=== PATIENT | male | born 1990 | race Caucasian/White ===

== ENCOUNTER 2019-11-01 02:11 | Emergency (ER) | payer BC ==
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
[2019-11-01] MEDS ORDERED: traMADol 50 MG Tab PO ONE (03:09)
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
== END 2019-11-01 03:22 | disposition home or self-care (01) ==
LOC: MW.ED 02:11
DX: S62.336A Displaced fracture of neck of fifth metacarpal bone, right hand, initial encounter for closed fracture (principal); F17.210 Nicotine dependence, cigarettes, uncomplicated; W22.8XXA Striking against or struck by other objects, initial encounter
CPT/HCPCS: 29125; 73130; 99283; A9270; 99282

== ENCOUNTER 2019-11-05 08:02 | Day surgery (SDC) | payer BC ==
[~2019-11-05 08:02] MED LIST: Lactated Ringers 1,000 ML IV SCH; Midazolam 1 MG/ML 2 ML SDV ONE; ceFAZolin 2 GM in Premix Bag 1 BAG IV SCH; fentaNYL 100 MCG/2 ML SDV ONE
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
[2019-11-05] MEDS ORDERED: Propofol 200 MG/20 ML SDV ONE (09:10)
[2019-11-05] MEDS ORDERED: Midazolam 1 MG/ML 2 ML SDV ONE (09:11)
[2019-11-05] MEDS ORDERED: fentaNYL 100 MCG/2 ML SDV ONE (09:11)
[2019-11-05] MEDS ORDERED: ceFAZolin/Dextrose,Iso-Osmotic 2 GM/50 ML Duplex Bag IV ONE (09:31)
[2019-11-05] MEDS ORDERED: 50% Dextrose in Water 50 ML Syringe IVPUSH PRN (10:25)
[2019-11-05] MEDS ORDERED: Naloxone 0.4 MG/ML Syringe IVPUSH PRN (10:25)
[2019-11-05] MEDS ORDERED: EPINEPHrine 1:10,000 1 MG/10 ML Syringe IVPUSH PRN (10:25)
[2019-11-05] MEDS ORDERED: Albuterol 0.083% 2.5 MG/3 ML Neb Soln NEB PRN (10:25)
[2019-11-05] MEDS ORDERED: Atropine 0.1 MG/ML 10 ML Syringe IVPUSH PRN ×2 (10:25)
[2019-11-05] MEDS ORDERED: fentaNYL 100 MCG/2 ML SDV IVPUSH PRN (10:25)
[2019-11-05] MEDS ORDERED: Ketorolac 30 MG/ML SDV IVPUSH ONE (10:27)
--- NOTE | 2019-11-05 10:39 | PCM.OPNOTE ---
- General Post-Op/Procedure Note Date of Surgery/Procedure: 11/05/19 Operative Procedure(s): Closed reduction and percutaneous pinning of right fifth metacarpal neck fracture Findings: Right displaced, angulated fifth metacarpal neck fracture with healing Pre Op Diagnosis: Right displaced, angulated fifth metacarpal neck fracture Post-Op Diagnosis: Right displaced, angulated fifth metacarpal neck fracture Anesthesia Technique: Regional Block Primary Surgeon: Raymond Arambula EBL in mLs: 1 Complications: None Condition: Good Free Text/Narrative:: Patient has a right displaced, angulated fifth metacarpal neck fracture. We reviewed the risks and benefits of surgery. Patient wished to proceed with surgery. Patient was taken to the operating room. After adequate Lucy block, the right hand and upper extremity were prepped and draped in usual sterile manner. Fracture reduction was attempted closed but was unsuccessful with multiple attempts. A small incision was made dorsal ulnarly to the fracture. Skin was incised with a scalpel. Subcutaneous tissues were spread with a hemostat. An elevator was placed within the fracture and the fracture reduced under C-arm visualization. The fracture reduced, a retrograde pin was placed through the fifth metacarpal head across the fracture and into the shaft. The pin was adjusted as needed. C-arm confirmed reduction on anterior-posterior and lateral views. The pin was cut. A plastic ball was placed over the pin. Bacitracin and a sterile dressing were applied. Patient was placed in an ulnar gutter intrinsic plus position splint patient was comfortable, still condition. Pain management: Vicodin and ibuprofen, elevation of hand Venous thromboembolism prophylaxis not indicated Restrictions: Patient is nonweightbearing on his right hand for 6 weeks. He should be seen at 2 weeks for postoperative check and assess the pin. I will see him back on December 04, 2019 for pin removal if x-rays show adequate healing.
--- NOTE | 2019-11-05 10:58 | PCM.POSTAN ---
POST ANESTHESIA ASSESSMENT - MENTAL STATUS Mental Status: Alert - VITAL SIGNS Vital Signs: Last Vital Signs Temp 37.0 C 11/05/19 10:22 Pulse 84 11/05/19 10:56 Resp 17 11/05/19 10:56 BP 120/76 11/05/19 10:56 Pulse Ox 97 11/05/19 10:56 - RESPIRATORY Respiratory Status: Respiratory Rate WNL - CARDIOVASCULAR CV Status: Pulse Rate WNL - GASTROINTESTINAL GI Status: No Symptoms - POST OP HYDRATION Hydration Status: Adequate & Stable
[2019-11-05] MEDS ORDERED: Acetaminophen 1,000 MG in Premix Bag 1 BAG IV ONE (11:20)
--- NOTE | 2019-11-05 11:34 | CR ---
Fifth finger: 2 fluoroscopic spot views were obtained of the fifth finger. Side of exam not marked on study. Study shows placement of fixation pin across previous fracture within the proximal phalanx of the fifth digit. Fracture also noted within the distal fourth metacarpal. Mild callus is seen around the fourth metacarpal fracture. Fluoroscopy time given as 20.8 seconds. Impression: 1. Procedural study as noted above. Diagnostic code #2 This report was dictated in [place] Standard Time
--- NOTE | 2019-11-05 12:46 | PCM48HPAN ---
Post Anesthesia Note - EVALUATION WITHIN 48HRS OF ANESTHETIC Vital Signs in Normal Range: Yes Patient Participated in Evaluation: Yes Respiratory Function Stable: Yes Airway Patent: Yes Cardiovascular Function Stable: Yes Hydration Status Stable: Yes Pain Control Satisfactory: Yes Nausea and Vomiting Control Satisfactory: Yes Mental Status Recovered: Yes Vital Signs: Last Vital Signs Temp 36.7 C 11/05/19 11:07 Pulse 98 11/05/19 12:07 Resp 14 11/05/19 12:07 BP 106/71 11/05/19 12:07 Pulse Ox 93 L 11/05/19 12:07
[2019-11-05] MEDS ORDERED: Acetaminophen/HYDROcodone 325-5 MG Tab PO ONE (13:46)
== END 2019-11-05 14:15 | disposition home or self-care (01) ==
LOC: MW.SDS 08:02
PROVIDERS: ATTEND Orthopaedic Surgery
DX: S62.336A Displaced fracture of neck of fifth metacarpal bone, right hand, initial encounter for closed fracture (principal); F17.210 Nicotine dependence, cigarettes, uncomplicated; Y04.2XXA Assault by strike against or bumped into by another person, initial encounter; Y92.009 Unspecified place in unspecified non-institutional (private) residence as the place of occurrence of the external cause
CPT/HCPCS: 26608; 76000; A9270; J0131; J0690; J1885; J2001; J2250; J2704; J3010; J7120

== ENCOUNTER 2020-01-19 20:20 | Observation (INO) | payer BC ==
[2020-01-19] MEDS ORDERED: Sodium Chloride 0.9% 10 ML Syringe FLUSH PRN ×2 (20:34→23:51)
[2020-01-19] MEDS ORDERED: Sodium Chloride 0.9% 2.5 ML Syringe FLUSH PRN ×2 (20:34→23:51)
[2020-01-19] MEDS ORDERED: Sodium Chloride 0.9% 1,000 ML IV ONE ×2 (20:41→22:44)
--- NOTE | 2020-01-19 20:44 | EDM.PDOC ---
ED HPI GENERAL MEDICAL PROBLEM - General Chief Complaint: Abdominal Pain Stated Complaint: ABDOMINAL PAIN Time Seen by Provider: 01/19/20 20:42 Source of Information: Reports: Patient History Limitations: Reports: No Limitations - History of Present Illness INITIAL COMMENTS - FREE TEXT/NARRATIVE: HISTORY AND PHYSICAL: History of present illness: Patient is a 29-year-old male presents to the ED With complaint of abdominal pain x 5 days. Patient states pain is constant with intermitted sharp pain mostly in his right lower abdomen. He states today the sharp pains have been more frequent. He states he has had a couple of episodes of vomiting. He has been taking miralax as he thought it may from constipation and has multiple loose nonbloody stools. He denies fevers, chills, dysuria, hematuria, flank pain , scrotal pain, cough, chest pain, shortness of breath. Denies significant past medical or surgical history. Review of systems: As per history of present illness and below otherwise all systems reviewed and negative. Past medical history: As per history of present illness and as reviewed below otherwise noncontributory. Surgical history: As per history of present illness and as reviewed below otherwise noncontributory. Social history: No reported history of drug or alcohol abuse. Family history: As per history of present illness and as reviewed below otherwise noncontributory. Physical exam: General: Patient sitting comfortably in no acute distress and nontoxic appearing HEENT: Atraumatic, normocephalic, pupils reactive, negative for conjunctival pallor or scleral icterus, mucous membranes moist, throat clear, neck supple, nontender, trachea midline. No meningeal signs. Lungs: Clear to auscultation, breath sounds equal bilaterally, chest nontender. Heart: S1S2, regular, negative for clicks, rubs, or overt murmur. Abdomen: Moderate right lower quadrant tenderness to palpation. Soft, nondistended. Negative for masses or hepatosplenomegaly. Negative for costovertebral tenderness. No rigidity, rebound, guarding. Pelvis: Stable nontender. Genitourinary: Deferred. Rectal: Deferred. Extremities: Atraumatic, negative for cords or calf pain. Neurovascular unremarkable. Neuro: Awake, alert, oriented. Cranial nerves II through XII unremarkable. Cerebellum unremarkable. Motor and sensory unremarkable throughout. Exam nonfocal. Notes: Diagnostics: CBC, CMP, lipase, UA Therapeutics: 1L NS IV Prescriptions: Impression: [] Plan: Signed out to Dr. Dietz at [id number] Definitive disposition and diagnosis as appropriate pending reevaluation and review of above. right lower abd Pain Score (Numeric/FACES): 6 Abdomen Pain Score (Numeric/FACES): 8 - Related Data Allergies Allergy/AdvReac Type Severity Reaction Status Date / Time No Known Allergies Allergy Verified 01/20/20 03:41 Home Meds: Home Meds . [No Known Home Meds] 01/19/20 [History] Past Medical History HEENT History: Reports: Other (See Below) Other HEENT History: wears glasses Cardiovascular History: Reports: None Respiratory History: Reports: None, Other (See Below) Gastrointestinal History: Reports: None Genitourinary History: Reports: None Musculoskeletal History: Reports: Fracture Neurological History: Reports: None Psychiatric History: Reports: None Endocrine/Metabolic History: Reports: None Insulin Pump Model and Manager Career: None Hematologic History: Reports: None Immunologic History: Reports: None Oncologic (Cancer) History: Reports: None Dermatologic History: Reports: None - Infectious Disease History Infectious Disease History: Reports: Chicken Pox - Past Surgical History Head Surgeries/Procedures: Reports: None HEENT Surgical History: Reports: None Cardiovascular Surgical History: Reports: None Respiratory Surgical History: Reports: None GI Surgical History: Reports: Colonoscopy Male Surgical History: Reports: None Neurological Surgical History: Reports: None Musculoskeletal Surgical History: Reports: ORIF Other Musculoskeletal Surgeries/Procedures:: ORIF rt femur fx, hardware removal rt femur. right hand surgery Oncologic Surgical History: Reports: None Social & Family History - Family History Family Medical History: Noncontributory - Tobacco Use Smoking Status *Q: Current Every Day Smoker Years of Tobacco use: 1 Packs/Tins Daily: 0.5 - Caffeine Use Caffeine Use: Reports: None - Recreational Drug Use Recreational Drug Use: No ED ROS GENERAL - Review of Systems Review Of Systems: Comprehensive ROS is negative, except as noted in HPI. ED EXAM, GI/ABD - Physical Exam Exam: See Below (see dictation) Course - Vital Signs Last Recorded V/S: Last Vital Signs Temp 98.1 F 01/20/20 19:14 Pulse 84 01/20/20 19:14 Resp 18 01/20/20 19:14 BP 114/81 01/20/20 19:14 Pulse Ox 96 01/20/20 19:14 - Orders/Labs/Meds Orders: Active Orders 24 hr Category Date Time Status Sodium Chloride 0.9% [Saline Flush] Med 01/19/20 20:34 Active 10 ml FLUSH ASDIRECTED PRN Sodium Chloride 0.9% [Saline Flush] Med 01/19/20 20:34 Active 2.5 ml FLUSH ASDIRECTED PRN Saline Lock Insert [OM.PC] Stat Oth 01/19/20 20:34 Ordered Medication Orders Albuterol (Proventil Neb Soln) 2.5 mg NEB ONETIME PRN PRN Reason: Wheezing Atropine Sulfate (Atropine 0.1 Mg/Ml) 0.5 mg IVPUSH ASDIRECTED PRN PRN Reason: Hypo-perfusion Atropine Sulfate (Atropine 0.1 Mg/Ml) 1 mg IVPUSH ASDIRECTED PRN PRN Reason: Hypo-Perfusion Dextrose/Water (Dextrose 50% In Water) 50 ml IVPUSH ASDIRECTED PRN PRN Reason: Hypoglycemia Diphenhydramine HCl (Benadryl) 50 mg IVPUSH Q4H PRN PRN Reason: Itching Epinephrine HCl (Epinephrine 1:10,000) 1 mg IVPUSH ASDIRECTED PRN PRN Reason: ACLS Guidelines Fentanyl (Sublimaze) 50 mcg IVPUSH Q5M PRN PRN Reason: Pain Piperacillin Sod/Tazobactam (Sod 3.375 gm/ Sodium Chloride) 50 mls @ 100 mls/ hr IV Q6H [facility] Last Admin: 01/20/20 16:26 Dose: 100 mls/hr Infusion: 01/20/20 11:28 Dose: 100 mls/hr Admin: 01/20/20 10:58 Dose: 100 mls/hr Infusion: 01/20/20 04:47 Dose: 100 mls/hr Admin: 01/20/20 04:17 Dose: 100 mls/hr Morphine Sulfate (Morphine) 4 mg IVPUSH Q2H PRN PRN Reason: Pain (severe 7-10) Last Admin: 01/20/20 10:59 Dose: 4 mg Admin: 01/20/20 04:34 Dose: 4 mg Admin: 01/20/20 00:42 Dose: 4 mg Naloxone HCl (Narcan) 0.1 mg IVPUSH ASDIRECTED PRN PRN Reason: Respiratory Depression Ondansetron HCl (Zofran) 4 mg IVPUSH Q6H PRN PRN Reason: Nausea/Vomiting Oxycodone/Acetaminophen (Percocet 325-5 Mg) 2 tab PO Q4H PRN PRN Reason: Pain (moderate 4-6) Last Admin: 01/20/20 17:51 Dose: 2 tab Admin: 01/20/20 12:59 Dose: 2 tab Admin: 01/20/20 02:15 Dose: 2 tab Promethazine HCl (Phenergan) 25 mg IM Q6H PRN PRN Reason: Nausea Sodium Chloride (Saline Flush) 10 ml FLUSH ASDIRECTED PRN PRN Reason: Keep Vein Open Last Admin: 01/19/20 21:08 Dose: 10 ml Sodium Chloride (Saline Flush) 2.5 ml FLUSH ASDIRECTED PRN PRN Reason: Keep Vein Open Last Admin: 01/19/20 21:08 Dose: 2.5 ml Sodium Chloride (Saline Flush) 10 ml FLUSH ASDIRECTED PRN PRN Reason: Keep Vein Open Sodium Chloride (Saline Flush) 2.5 ml FLUSH ASDIRECTED PRN PRN Reason: Keep Vein Open Sodium Chloride (Normal Saline) 10 ml IV ASDIRECTED PRN PRN Reason: IV Use Labs: Laboratory Tests 01/19/20 01/19/20 Range/Units 20:55 20:55 WBC 15.60 H (4.0-11.0) K/uL RBC 5.17 (4.50-5.90) M/uL Hgb 16.5 (13.0-17.0) g/dL Hct 48.3 (38.0-50.0) % MCV 93.4 (80.0-98.0) fL MCH 31.9 (27.0-32.0) pg MCHC 34.2 (31.0-37.0) g/dL RDW Std Deviation 44.6 (28.0-62.0) fl RDW Coeff of Vani 13 (11.0-15.0) % Plt Count 286 (150-400) K/uL MPV 11.20 (7.40-12.00) fL Neut % (Auto) 80.4 H (48.0-80.0) % Lymph % (Auto) 10.4 L (16.0-40.0) % [place] % (Auto) 8.5 (0.0-15.0) % Eos % (Auto) 0.6 (0.0-7.0) % Baso % (Auto) 0.1 (0.0-1.5) % Neut # (Auto) 12.5 H (1.4-5.7) K/uL Lymph # (Auto) 1.6 (0.6-2.4) K/uL [place] # (Auto) 1.3 H (0.0-0.8) K/uL Eos # (Auto) 0.1 (0.0-0.7) K/uL Baso # (Auto) 0.0 (0.0-0.1) K/uL Nucleated RBC % 0.0 /100WBC Nucleated RBCs # 0 K/uL Sodium 139 (136-148) mmol/L Potassium 4.6 (3.5-5.1) mmol/L Chloride 102 (98-107) mmol/L Carbon Dioxide 25.6 (21.0-32.0) mmol/L BUN 13 (7.0-18.0) mg/dL Creatinine 1.2 (0.8-1.3) mg/dL Est Cr Clr Drug Dosing 95.47 mL/min Estimated GFR (MDRD) > 60.0 ml/min Glucose 99 (74-106) mg/dL Calcium 9.4 (8.5-10.1) mg/dL Total Bilirubin 1.4 H (0.2-1.0) mg/dL AST 18 (15-37) IU/L ALT 31 (14-63) IU/L Alkaline Phosphatase 88 (46-116) U/L Total Protein 8.1 (6.4-8.2) g/dL Albumin 4.2 (3.4-5.0) g/dL Globulin 3.9 (2.6-4.0) g/dL Albumin/Globulin Ratio 1.1 (0.9-1.6) Lipase 84 (73-393) U/L Meds: Medications Generic Name Dose Route Start Last Admin Trade Name Freq PRN Reason Stop Dose Admin Albuterol 2.5 mg 01/20/20 07:35 Proventil Neb Soln NEB ONETIME PRN Wheezing Atropine Sulfate 0.5 mg 01/20/20 07:35 Atropine 0.1 Mg/Ml IVPUSH ASDIRECTED PRN Hypo-perfusion Atropine Sulfate 1 mg 01/20/20 07:35 Atropine 0.1 Mg/Ml IVPUSH ASDIRECTED PRN Hypo-Perfusion Dextrose/Water 50 ml 01/20/20 07:35 Dextrose 50% In Water IVPUSH ASDIRECTED PRN Hypoglycemia Diphenhydramine HCl 50 mg 01/19/20 23:51 Benadryl IVPUSH Q4H PRN Itching Epinephrine HCl 1 mg 01/20/20 07:35 Epinephrine 1:10,000 IVPUSH ASDIRECTED PRN ACLS Guidelines Fentanyl 50 mcg 01/20/20 07:35 Sublimaze IVPUSH Q5M PRN Pain Piperacillin Sod/Tazobactam 50 mls @ 100 mls/hr 01/20/20 05:00 01/20/20 16:26 Sod 3.375 gm/ Sodium Chloride IV 100 mls/hr Q6H CASE Administration Morphine Sulfate 4 mg 01/19/20 23:51 01/20/20 10:59 Morphine IVPUSH 4 mg Q2H PRN Administration Pain (severe 7-10) Naloxone HCl 0.1 mg 01/20/20 07:35 Narcan IVPUSH ASDIRECTED PRN Respiratory Depression Ondansetron HCl 4 mg 01/19/20 23:51 Zofran IVPUSH Q6H PRN Nausea/Vomiting Oxycodone/Acetaminophen 2 tab 01/19/20 23:51 01/20/20 17:51 Percocet 325-5 Mg PO 2 tab Q4H PRN Administration Pain (moderate 4-6) Promethazine HCl 25 mg 01/19/20 23:51 Phenergan IM Q6H PRN Nausea Sodium Chloride 10 ml 01/19/20 20:34 01/19/20 21:08 Saline Flush FLUSH 10 ml ASDIRECTED PRN Administration Keep Vein Open Sodium Chloride 2.5 ml 01/19/20 20:34 01/19/20 21:08 Saline Flush FLUSH 2.5 ml ASDIRECTED PRN Administration Keep Vein Open Sodium Chloride 10 ml 01/19/20 23:51 Saline Flush FLUSH ASDIRECTED PRN Keep Vein Open Sodium Chloride 2.5 ml 01/19/20 23:51 Saline Flush FLUSH ASDIRECTED PRN Keep Vein Open Sodium Chloride 10 ml 01/19/20 23:51 Normal Saline IV ASDIRECTED PRN IV Use Discontinued Medications Generic Name Dose Route Start Last Admin Trade Name Avni PRN Reason Stop Dose Admin Bupivacaine HCl Confirm 01/20/20 07:32 Marcaine 0.5% Administered 01/20/20 07:33 Dose 30 ml .ROUTE .STK-MED ONE Fentanyl Confirm 01/20/20 07:17 Sublimaze Administered 01/20/20 07:18 Dose 250 mcg .ROUTE .STK-MED ONE Glycopyrrolate Confirm 01/20/20 07:23 Robinul Administered 01/20/20 07:24 Dose 0.4 mg .ROUTE .STK-MED ONE Sodium Chloride 1,000 mls @ 999 mls/hr 01/19/20 20:41 01/19/20 21:07 Normal Saline IV 01/19/20 21:41 999 mls/hr STAT ONE Administration Piperacillin Sod/Tazobactam 100 mls @ 100 mls/hr 01/19/20 22:44 01/19/20 23: 09 Sod 4.5 gm/ Sodium Chloride IV 01/19/20 23:43 Not Given ONETIME ONE Sodium Chloride 1,000 mls @ 1,000 mls/hr 01/19/20 22:44 01/19/20 23:00 Normal Saline IV 01/19/20 23:43 1,000 mls/hr .Bolus ONE Administration Piperacillin Sod/Tazobactam 50 mls @ 100 mls/hr 01/19/20 22:50 01/19/20 23:04 Sod 3.375 gm/ Sodium Chloride IV 01/19/20 23:19 100 mls/hr ONETIME ONE Administration Lactated Ringer's 1,000 mls @ 125 mls/hr 01/19/20 23:45 01/20/20 00:38 Ringers, Lactated IV 125 mls/hr ASDIRECTED CASE Administration Iopamidol 100 ml 01/19/20 22:15 01/19/20 22:19 Isovue-370 (76%) IVPUSH 01/19/20 22:16 100 ml ONETIME STA Administration Lidocaine HCl Confirm 01/20/20 07:15 Xylocaine 2% Administered 01/20/20 07:16 Dose 100 mg .ROUTE .STK-MED ONE Morphine Sulfate 8 mg 01/19/20 22:45 01/19/20 23:02 Morphine IVPUSH 01/19/20 22:46 8 mg ONETIME ONE Administration Ondansetron HCl Confirm 01/20/20 07:15 Zofran Administered 01/20/20 07:16 Dose 4 mg .ROUTE .STK-MED ONE Propofol Confirm 01/20/20 07:16 Diprivan 20 Ml Administered 01/20/20 07:17 Dose 200 mg .ROUTE .STK-MED ONE Rocuronium [place] Confirm 01/20/20 07:15 Zemuron Administered 01/20/20 07:16 Dose 100 mg .ROUTE .STK-MED ONE Departure - Departure Time of Disposition: 19:15 Disposition: Still A Patient 30 Clinical Impression: Acute appendicitis - Discharge Information Sepsis Event Note - Evaluation Sepsis Screening Result: No Definite Risk - Focused Exam Date Exam was Performed: 01/20/20 Time Exam was Performed: 19:15 - My Orders Last 24 Hours: My Active Orders 01/19/20 20:34 Sodium Chloride 0.9% [Saline Flush] 10 ml FLUSH ASDIRECTED PRN Sodium Chloride 0.9% [Saline Flush] 2.5 ml FLUSH ASDIRECTED PRN Saline Lock Insert [OM.PC] Stat - Assessment/Plan Last 24 Hours: My Active Orders 01/19/20 20:34 Sodium Chloride 0.9% [Saline Flush] 10 ml FLUSH ASDIRECTED PRN Sodium Chloride 0.9% [Saline Flush] 2.5 ml FLUSH ASDIRECTED PRN Saline Lock Insert [OM.PC] Stat
[2020-01-19 21:26] LABS: BLOOD UREA NITROGEN,BUN 13 mg/dL (7.0-18.0); CARBON DIOXIDE,CO2 25.6 mmol/L (21.0-32.0); CHLORIDE,CL 102 mmol/L (98-107); GLUCOSE RANDOM 99 mg/dL (74-106); LIPASE 84 U/L (73-393); POTASSIUM,K 4.6 mmol/L (3.5-5.1); SODIUM,NA 139 mmol/L (136-148)
[2020-01-19] MEDS ORDERED: Iopamidol 755 Mg/ML 100 ML Bottle IVPUSH STA (22:15)
[2020-01-19] MEDS ORDERED: Piperacillin/Tazobactam 4.5 GM in Sodium Chloride 0.9% 100 ML IV ONE (22:44)
--- NOTE | 2020-01-19 22:44 | CT ---
INDICATION: Right lower quadrant pain. CT ABDOMEN AND PELVIS WITH CONTRAST TECHNIQUE: Multidetector CT imaging was performed through the abdomen and pelvis following intravenous contrast administration using 100 mL Isovue 370. Coronal and sagittal reconstructions were generated. COMPARISON: None. FINDINGS: Lower chest: Lung bases are clear. Liver: Within normal limits. Gallbladder and bile ducts: No gallbladder wall thickening or calcified gallstones. No biliary dilation identified. Pancreas: Unremarkable. Spleen: Normal. Adrenals: No nodules or masses. Kidneys, ureters, and urinary bladder: No renal masses or hydronephrosis. No bladder mass or definite wall thickening. Gastrointestinal tract: Normal caliber bowel without obstruction or definite wall thickening. Abnormal enlarged appendix measuring 11 millimeters in diameter with diffuse wall thickening and periappendiceal fat stranding, consistent with appendicitis. Vascular structures: Normal for age. Peritoneum: Trace amount of free fluid in the low pelvis. No loculated collection suggestive of abscess. No free air identified. Lymph nodes: No pathologically enlarged nodes identified. Reproductive organs: No pelvic masses. 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 IMPRESSION: Acute appendicitis. No evidence of appendiceal perforation or abscess. LOUISA GUADALUPE MD [facility] Dictated by Kartik Guadalupe MD @ 01/19/2020 10:41:04 PM Dictated by: Kartik Guadalupe MD @ 01/19/2020 22:41:47 (Electronically Signed)
[2020-01-19] MEDS ORDERED: Morphine 10 MG/ML Syringe IVPUSH ONE (22:45)
[2020-01-19] MEDS ORDERED: Piperacillin/Tazobactam 3.375 GM in Sodium Chloride 0.9% 50 ML IV ONE (22:50)
--- NOTE | 2020-01-19 23:44 | PCM.HP.2 ---
H&P History of Present Illness - General Date of Service: 01/19/20 Admit Problem/Dx: Admission Diagnosis/Problem Admission Diagnosis/Problem Appendicitis Source of Information: Patient History Limitations: Reports: No Limitations - History of Present Illness Initial Comments - Free Text/Narative: Patient is a 29 year old male who presents with RLQ pain for 5 days. He states that he thought it was constipation, so he took OTC laxatives. He had several watery BMs but the pain did not improve. The pain became more constant and severe today. He noticed that his urine was dark. He has had a couple episodes of vomiting and has no appetite. He was tachycardic on arrival to the ER. He responded well to fluids. He was afebrile. WBC was elevated at 15k with a left shift. CT abdomen/pelvis showed a dilated and inflamed appendix with significant phlegmon. The radiologist noted no signs of perforation or abscess. right lower abd Pain Score (Numeric/FACES): 6 - Related Data Allergies/Adverse Reactions: Allergies Allergy/AdvReac Type Severity Reaction Status Date / Time No Known Allergies Allergy Verified 01/19/20 20:28 Home Medications: Home Meds . [No Known Home Meds] 01/19/20 [History] Past Medical History HEENT History: Reports: Other (See Below) Other HEENT History: wears glasses Cardiovascular History: Reports: None Respiratory History: Reports: None, Other (See Below) Gastrointestinal History: Reports: None Genitourinary History: Reports: None Musculoskeletal History: Reports: Fracture Neurological History: Reports: None Psychiatric History: Reports: None Endocrine/Metabolic History: Reports: None Insulin Pump Model and Weatherization Field Technician: None Hematologic History: Reports: None Immunologic History: Reports: None Oncologic (Cancer) History: Reports: None Dermatologic History: Reports: None - Infectious Disease History Infectious Disease History: Reports: Chicken Pox - Past Surgical History Head Surgeries/Procedures: Reports: None HEENT Surgical History: Reports: None Cardiovascular Surgical History: Reports: None Respiratory Surgical History: Reports: None GI Surgical History: Reports: Colonoscopy Male Surgical History: Reports: None Neurological Surgical History: Reports: None Musculoskeletal Surgical History: Reports: ORIF Other Musculoskeletal Surgeries/Procedures:: ORIF rt femur fx, hardware removal rt femur. right hand surgery Oncologic Surgical History: Reports: None Social & Family History - Family History Family Medical History: Noncontributory - Tobacco Use Smoking Status *Q: Current Every Day Smoker Years of Tobacco use: 1 Packs/Tins Daily: 0.5 - Caffeine Use Caffeine Use: Reports: None - Recreational Drug Use Recreational Drug Use: No H&P Review of Systems - Review of Systems: Review Of Systems: Comprehensive ROS is negative, except as noted in HPI. Exam - Exam Exam: See Below - Vital Signs Vital Signs: Last Vital Signs Temp 36.6 C 01/19/20 20:29 Pulse 88 01/19/20 22:59 Resp 18 01/19/20 22:59 BP 119/84 01/19/20 22:59 Pulse Ox 99 01/19/20 22:59 Weight: 81.647 kg - Exam General: Alert, Oriented HEENT: Conjunctiva Clear, Mucosa Moist & [place], Posterior Pharynx Clear Lungs: Clear to Auscultation, Normal Respiratory Effort Cardiovascular: Regular Rate, Regular Rhythm GI/Abdominal Exam: No Distention, Guarding (RLQ), Rigid (RLQ), Rebound (RLQ), Tender (RLQ) - Patient Data Lab Results Last 24 hrs: Laboratory Results - last 24 hr 01/19/20 01/19/20 Range/Units 20:55 20:55 WBC 15.60 H (4.0-11.0) K/uL RBC 5.17 (4.50-5.90) M/uL Hgb 16.5 (13.0-17.0) g/dL Hct 48.3 (38.0-50.0) % MCV 93.4 (80.0-98.0) fL MCH 31.9 (27.0-32.0) pg MCHC 34.2 (31.0-37.0) g/dL RDW Std Deviation 44.6 (28.0-62.0) fl RDW Coeff of Vani 13 (11.0-15.0) % Plt Count 286 (150-400) K/uL MPV 11.20 (7.40-12.00) fL Neut % (Auto) 80.4 H (48.0-80.0) % Lymph % (Auto) 10.4 L (16.0-40.0) % [place] % (Auto) 8.5 (0.0-15.0) % Eos % (Auto) 0.6 (0.0-7.0) % Baso % (Auto) 0.1 (0.0-1.5) % Neut # (Auto) 12.5 H (1.4-5.7) K/uL Lymph # (Auto) 1.6 (0.6-2.4) K/uL [place] # (Auto) 1.3 H (0.0-0.8) K/uL Eos # (Auto) 0.1 (0.0-0.7) K/uL Baso # (Auto) 0.0 (0.0-0.1) K/uL Nucleated RBC % 0.0 /100WBC Nucleated RBCs # 0 K/uL Sodium 139 (136-148) mmol/L Potassium 4.6 (3.5-5.1) mmol/L Chloride 102 (98-107) mmol/L Carbon Dioxide 25.6 (21.0-32.0) mmol/L BUN 13 (7.0-18.0) mg/dL Creatinine 1.2 (0.8-1.3) mg/dL Est Cr Clr Drug Dosing 95.47 mL/min Estimated GFR (MDRD) > 60.0 ml/min Glucose 99 (74-106) mg/dL Calcium 9.4 (8.5-10.1) mg/dL Total Bilirubin 1.4 H (0.2-1.0) mg/dL AST 18 (15-37) IU/L ALT 31 (14-63) IU/L Alkaline Phosphatase 88 (46-116) U/L Total Protein 8.1 (6.4-8.2) g/dL Albumin 4.2 (3.4-5.0) g/dL Globulin 3.9 (2.6-4.0) g/dL Albumin/Globulin Ratio 1.1 (0.9-1.6) Lipase 84 (73-393) U/L Result Diagrams: 01/19/20 20:55 01/19/20 20:55 Sepsis Event Note - Evaluation Sepsis Screening Result: No Definite Risk - Focused Exam Vital Signs: Vital Signs Temp Pulse Resp BP Pulse Ox 01/19/20 22:59 88 18 119/84 99 01/19/20 21:55 88 18 125/84 98 01/19/20 20:29 36.6 C 122 H 16 122/77 96 Date Exam was Performed: 01/19/20 Time Exam was Performed: 23:44 - Problem List (1) Acute appendicitis SNOMED Code(s): 34667643 ICD Code: K35.80 - UNSPECIFIED ACUTE APPENDICITIS Status: Acute Current Visit: Yes Problem List Initiated/Reviewed/Updated: Yes Orders Last 24hrs: Active Orders 24 hr Category Date Time Status Admission Status [Patient Status] [ADT] Stat ADT 01/19/20 23:28 Active UA RFX JAMIL AND CULT IF INDIC [URIN] Stat Lab 01/19/20 20:41 Ordered Sodium Chloride 0.9% [Normal Saline] 1,000 ml Med 01/19/20 22:44 Active IV .Bolus Sodium Chloride 0.9% [Saline Flush] Med 01/19/20 20:34 Active 10 ml FLUSH ASDIRECTED PRN Sodium Chloride 0.9% [Saline Flush] Med 01/19/20 20:34 Active 2.5 ml FLUSH ASDIRECTED PRN Saline Lock Insert [OM.PC] Stat Oth 01/19/20 20:34 Ordered Medication Orders Sodium Chloride (Normal Saline) 1,000 mls @ 1,000 mls/hr IV .Bolus ONE Stop: 01/19/20 23:43 Last Admin: 01/19/20 23:00 Dose: 1,000 mls/hr Sodium Chloride (Saline Flush) 10 ml FLUSH ASDIRECTED PRN PRN Reason: Keep Vein Open Last Admin: 01/19/20 21:08 Dose: 10 ml Sodium Chloride (Saline Flush) 2.5 ml FLUSH ASDIRECTED PRN PRN Reason: Keep Vein Open Last Admin: 01/19/20 21:08 Dose: 2.5 ml Assessment/Plan Comment:: Patient and I discussed his CT findings. With as long as his symptoms have been going on, his clinical exam and the amount of inflamation I see around the appendix I suspect he may have a perforated appendix. Will admit for IVF and IV antibiotics and take to the OR in the am for an appendectomy. I explained that I would attempt it laparoscopically and convert to open if I cannot perform it safely. I explained the hospital course for each and for perforated vs non- perforated. We discussed the risks including bleeding, infection or damage to surrounding structures. He verbalized understanding and wishes to proceed.
[2020-01-19] MEDS ORDERED: Lactated Ringers 1,000 ML IV SCH (23:45)
[2020-01-19] MEDS ORDERED: Sodium Chloride 0.9% 10 ML SDV IV PRN (23:51)
[2020-01-19] MEDS ORDERED: diphenhydrAMINE 50 MG/ML SDV IVPUSH PRN (23:51)
[2020-01-19] MEDS ORDERED: Promethazine 25 MG/ML SDV IM PRN (23:51)
[2020-01-20] MEDS: Morphine 4 MG/ML Syringe IVPUSH PRN ×4 (00:42→21:48)
[2020-01-20] MEDS: Acetaminophen/oxyCODONE 325-5 MG Tab PO PRN ×3 (02:15→17:51)
[2020-01-20] MEDS: Piperacillin/Tazobactam 3.375 GM in Sodium Chloride 0.9% 50 ML IV SCH ×4 (04:17→23:23)
--- NOTE | 2020-01-20 07:13 | PCM.PREANE ---
Preanesthetic Assessment - Anesthesia/Transfusion/Family Hx Anesthesia History: Prior Anesthesia Without Reaction Family History of Anesthesia Reaction: No Transfusion History: No Prior Transfusion(s) Intubation History: Unknown - Review of Systems General: No Symptoms Pulmonary: No Symptoms Cardiovascular: No Symptoms Gastrointestinal: Abdominal Pain Neurological: No Symptoms Other: Reports: None - Physical Assessment Vital Signs: Last Vital Signs Temp 36.6 C 01/20/20 04:00 Pulse 78 01/20/20 04:00 Resp 16 01/20/20 04:00 BP 119/69 01/20/20 04:00 Pulse Ox 97 01/20/20 04:00 Height: 5 ft 1.32 in Weight: 81.647 kg ASA Class: 2E Mental Status: Alert & Oriented x3 Airway Class: Mallampati = 1 Dentition: Reports: Normal Dentition (small chip front upper incisor) Thyro-Mental Finger Breadths: 3 Mouth Opening Finger Breadths: 3 ROM/Head Extension: Full Lungs: Clear to Auscultation, Normal Respiratory Effort Cardiovascular: Regular Rate, Regular Rhythm - Lab Values: Laboratory Last Values WBC 15.60 K/uL (4.0-11.0) H 01/19/20 20:55 RBC 5.17 M/uL (4.50-5.90) 01/19/20 20:55 Hgb 16.5 g/dL (13.0-17.0) 01/19/20 20:55 Hct 48.3 % (38.0-50.0) 01/19/20 20:55 MCV 93.4 fL (80.0-98.0) 01/19/20 20:55 MCH 31.9 pg (27.0-32.0) 01/19/20 20:55 MCHC 34.2 g/dL (31.0-37.0) 01/19/20 20:55 RDW Std Deviation 44.6 fl (28.0-62.0) 01/19/20 20:55 RDW Coeff of Vani 13 % (11.0-15.0) 01/19/20 20:55 Plt Count 286 K/uL (150-400) 01/19/20 20:55 MPV 11.20 fL (7.40-12.00) 01/19/20 20:55 Neut % (Auto) 80.4 % (48.0-80.0) H 01/19/20 20:55 Lymph % (Auto) 10.4 % (16.0-40.0) L 01/19/20 20:55 [place] % (Auto) 8.5 % (0.0-15.0) 01/19/20 20:55 Eos % (Auto) 0.6 % (0.0-7.0) 01/19/20 20:55 Baso % (Auto) 0.1 % (0.0-1.5) 01/19/20 20:55 Neut # (Auto) 12.5 K/uL (1.4-5.7) H 01/19/20 20:55 Lymph # (Auto) 1.6 K/uL (0.6-2.4) 01/19/20 20:55 [place] # (Auto) 1.3 K/uL (0.0-0.8) H 01/19/20 20:55 Eos # (Auto) 0.1 K/uL (0.0-0.7) 01/19/20 20: Baso # (Auto) 0.0 K/uL (0.0-0.1) 01/19/20 20: Nucleated RBC % 0.0 /100WBC 01/19/20: Nucleated RBCs # 0 K/uL 01/19/20 20:55 Sodium 139 mmol/L (136-148) 01/19/20 20:55 Potassium 4.6 mmol/L (3.5-5.1) 01/19/20 20: Chloride 102 mmol/L (98-107) 01/19/20 20: Carbon Dioxide 25.6 mmol/L (21.0-32.0) 01/19/20 20:55 BUN 13 mg/dL (7.0-18.0) 01/19/20 20:55 Creatinine 1.2 mg/dL (0.8-1.3) 01/19/20 20: Est Cr Clr Drug Dosing 95.47 mL/min 01/19/20 20:55 Estimated GFR (MDRD) > 60.0 ml/min 01/19/20 20:55 Glucose 99 mg/dL (74-106) 01/19/20 20:55 Calcium 9.4 mg/dL (8.5-10.1) 01/19/20 20:55 Total Bilirubin 1.4 mg/dL (0.2-1.0) H 01/19/20 20:55 AST 18 IU/L (15-37) 01/19/20 20:55 ALT 31 IU/L (14-63) 01/19/20 20:55 Alkaline Phosphatase 88 U/L (46-116) 01/19/20 20:55 Total Protein 8.1 g/dL (6.4-8.2) 01/19/20 20:55 Albumin 4.2 g/dL (3.4-5.0) 01/19/20 20:55 Globulin 3.9 g/dL (2.6-4.0) 01/19/20 20:55 Albumin/Globulin Ratio 1.1 (0.9-1.6) 01/19/20 20:55 Lipase 84 U/L (73-393) 01/19/20 20:55 Urine Color YELLOW 01/20/20 04:20 Urine Appearance CLEAR 01/20/20 04:20 Urine pH 5.5 (5.0-8.0) 01/20/20 04:20 Ur Specific [place] 1.015 (1.001-1.035) 01/20/20 04:20 Urine Protein NEGATIVE mg/dL (NEGATIVE) 01/20/20 04:20 Urine Glucose (UA) NEGATIVE mg/dL (NEGATIVE) 01/20/20 04:20 Urine Ketones NEGATIVE mg/dL (NEGATIVE) 01/20/20 04:20 Urine Occult Blood NEGATIVE (NEGATIVE) 01/20/20 04:20 Urine Nitrite NEGATIVE (NEGATIVE) 01/20/20 04:20 Urine Bilirubin NEGATIVE (NEGATIVE) 01/20/20 04:20 Urine Urobilinogen 0.2 EU/dL (<2.0) 01/20/20 04:20 Ur Leukocyte Esterase NEGATIVE (NEGATIVE) 01/20/20 04:20 - Allergies Allergies/Adverse Reactions: Allergies Allergy/AdvReac Type Severity Reaction Status Date / Time No Known Allergies Allergy Verified 01/20/20 03:41 - Blood Blood Available: No - Anesthesia Plan Pre-Op Medication Ordered: None - Acknowledgements Anesthesia Type Planned: General Anesthesia Pt an Appropriate Candidate for the Planned Anesthesia: Yes Alternatives and Risks of Anesthesia Discussed w Pt/Guardian: Yes Pt/Guardian Understands and Agrees with Anesthesia Plan: Yes PreAnesthesia Questionnaire HEENT History: Reports: Other (See Below) Other HEENT History: wears glasses Cardiovascular History: Reports: None Respiratory History: Reports: None, Other (See Below) Gastrointestinal History: Reports: None Genitourinary History: Reports: None Musculoskeletal History: Reports: Fracture Neurological History: Reports: None Psychiatric History: Reports: None Endocrine/Metabolic History: Reports: Obesity/BMI 30+ (BMI 33.7) Hematologic History: Reports: None Immunologic History: Reports: None Oncologic (Cancer) History: Reports: None Dermatologic History: Reports: None - Infectious Disease History Infectious Disease History: Reports: Chicken Pox - Past Surgical History Head Surgeries/Procedures: Reports: None HEENT Surgical History: Reports: None Cardiovascular Surgical History: Reports: None Respiratory Surgical History: Reports: None GI Surgical History: Reports: Colonoscopy Male Surgical History: Reports: None Neurological Surgical History: Reports: None Musculoskeletal Surgical History: Reports: ORIF Other Musculoskeletal Surgeries/Procedures:: ORIF rt femur fx, hardware removal rt femur. right hand surgery Oncologic Surgical History: Reports: None - SUBSTANCE USE Recreational Drug Use History: No - HOME MEDS Home Medications: Home Meds . [No Known Home Meds] 01/19/20 [History] - CURRENT (IN HOUSE) MEDS Current Meds: Current Medications Diphenhydramine HCl (Benadryl) 50 mg IVPUSH Q4H PRN PRN Reason: Itching Lactated Ringer's (Ringers, Lactated) 1,000 mls @ 125 mls/hr IV ASDIRECTED [facility] Last Admin: 01/20/20 00:38 Dose: 125 mls/hr Piperacillin Sod/Tazobactam (Sod 3.375 gm/ Sodium Chloride) 50 mls @ 100 mls/ hr IV Q6H [facility] Last Admin: 01/20/20 04:17 Dose: 100 mls/hr Morphine Sulfate (Morphine) 4 mg IVPUSH Q2H PRN PRN Reason: Pain (severe 7-10) Last Admin: 01/20/20 04:34 Dose: 4 mg Ondansetron HCl (Zofran) 4 mg IVPUSH Q6H PRN PRN Reason: Nausea/Vomiting Oxycodone/Acetaminophen (Percocet 325-5 Mg) 2 tab PO Q4H PRN PRN Reason: Pain (moderate 4-6) Last Admin: 01/20/20 02:15 Dose: 2 tab Promethazine HCl (Phenergan) 25 mg IM Q6H PRN PRN Reason: Nausea Sodium Chloride (Saline Flush) 10 ml FLUSH ASDIRECTED PRN PRN Reason: Keep Vein Open Last Admin: 01/19/20 21:08 Dose: 10 ml Sodium Chloride (Saline Flush) 2.5 ml FLUSH ASDIRECTED PRN PRN Reason: Keep Vein Open Last Admin: 01/19/20 21:08 Dose: 2.5 ml Sodium Chloride (Saline Flush) 10 ml FLUSH ASDIRECTED PRN PRN Reason: Keep Vein Open Sodium Chloride (Saline Flush) 2.5 ml FLUSH ASDIRECTED PRN PRN Reason: Keep Vein Open Sodium Chloride (Normal Saline) 10 ml IV ASDIRECTED PRN PRN Reason: IV Use Discontinued Medications Sodium Chloride (Normal Saline) 1,000 mls @ 999 mls/hr IV STAT ONE Stop: 01/19/20 21:41 Last Admin: 01/19/20 21:07 Dose: 999 mls/hr Piperacillin Sod/Tazobactam (Sod 4.5 gm/ Sodium Chloride) 100 mls @ 100 mls/hr IV ONETIME ONE Stop: 01/19/20 23:43 Last Admin: 01/19/20 23:09 Dose: Not Given Sodium Chloride (Normal Saline) 1,000 mls @ 1,000 mls/hr IV .Bolus ONE Stop: 01/19/20 23:43 Last Admin: 01/19/20 23:00 Dose: 1,000 mls/hr Piperacillin Sod/Tazobactam (Sod 3.375 gm/ Sodium Chloride) 50 mls @ 100 mls/ hr IV ONETIME ONE Stop: 01/19/20 23:19 Last Admin: 01/19/20 23:04 Dose: 100 mls/hr Iopamidol (Isovue-370 (76%)) 100 ml IVPUSH ONETIME STA Stop: 01/19/20 22:16 Last Admin: 01/19/20 22:19 Dose: 100 ml Morphine Sulfate (Morphine) 8 mg IVPUSH ONETIME ONE Stop: 01/19/20 22:46 Last Admin: 01/19/20 23:02 Dose: 8 mg
[2020-01-20] MEDS ORDERED: Lidocaine 2% 100 MG/5 ML Syringe ONE (07:15)
[2020-01-20] MEDS ORDERED: Ondansetron 4 MG/2 ML SDV ONE (07:15)
[2020-01-20] MEDS ORDERED: Rocuronium 100 MG/10 ML Syringe ONE (07:15)
[2020-01-20] MEDS ORDERED: Propofol 200 MG/20 ML SDV ONE (07:16)
[2020-01-20] MEDS ORDERED: fentaNYL 250 MCG/5 ML SDV ONE (07:17)
[2020-01-20] MEDS ORDERED: Glycopyrrolate 0.2 MG/ML SDV ONE (07:23)
[2020-01-20] MEDS ORDERED: Bupivacaine 0.5% 30 ML SDV ONE (07:32)
[2020-01-20] MEDS ORDERED: Naloxone 0.4 MG/ML Syringe IVPUSH PRN (07:35)
[2020-01-20] MEDS ORDERED: EPINEPHrine 1:10,000 1 MG/10 ML Syringe IVPUSH PRN (07:35)
[2020-01-20] MEDS ORDERED: fentaNYL 100 MCG/2 ML SDV IVPUSH PRN (07:35)
[2020-01-20] MEDS ORDERED: Atropine 0.1 MG/ML 10 ML Syringe IVPUSH PRN ×2 (07:35)
[2020-01-20] MEDS ORDERED: Albuterol 0.083% 2.5 MG/3 ML Neb Soln NEB PRN (07:35)
[2020-01-20] MEDS ORDERED: 50% Dextrose in Water 50 ML Syringe IVPUSH PRN (07:35)
--- NOTE | 2020-01-20 09:53 | PCM.OPNOTE ---
- General Post-Op/Procedure Note Date of Surgery/Procedure: 01/20/20 Operative Procedure(s): Laparoscopic appendectomy Findings: Grossly inflamed and enlarged appendix. Perforated with manipulation. Pre Op Diagnosis: Acute appendicitis Post-Op Diagnosis: same Anesthesia Technique: General ET Tube Primary Surgeon: Beti Reed Fluid Replacement, Intraop: 800 Output, Urine Amount: 225 EBL in mLs: 10 Condition: Fair Free Text/Narrative:: Intake & Output 01/19/20 01/20/20 01/20/20 22:59 06:59 14:59 Intake Total 530 Output Total 300 Balance 230
--- NOTE | 2020-01-20 10:41 | PCM.POSTAN ---
POST ANESTHESIA ASSESSMENT - MENTAL STATUS Mental Status: Alert, Oriented - VITAL SIGNS Vital Signs: Last Vital Signs Temp 97.2 F 01/20/20 09:52 Pulse 66 01/20/20 10:32 Resp 12 01/20/20 10:32 BP 125/84 01/20/20 10:32 Pulse Ox 92 L 01/20/20 10:32 - RESPIRATORY Respiratory Status: Respiratory Rate WNL, Airway Patent, O2 Saturation Stable - CARDIOVASCULAR CV Status: Pulse Rate WNL, Blood Pressure Stable - GASTROINTESTINAL GI Status: No Symptoms - PAIN Pain Score: 8 Free Text/Narrative:: Pt is snoring at this time and arousable to stimuli - POST OP HYDRATION Hydration Status: Adequate & Stable
--- NOTE | 2020-01-20 14:47 | PCM.SURGPN ---
- General Info Date of Service: 01/20/20 Date of Surgery/Procedure: 01/20/20 POD#: 0 Functional Status: Reports: Pain Controlled, Tolerating Diet, Ambulating, Urinating - Review of Systems General: Reports: No Symptoms HEENT: Reports: No Symptoms Pulmonary: Reports: No Symptoms Cardiovascular: Reports: No Symptoms Gastrointestinal: Reports: No Symptoms Genitourinary: Reports: No Symptoms Musculoskeletal: Reports: No Symptoms Skin: Reports: No Symptoms Psychiatric: Reports: No Symptoms - Patient Data Vitals - Most Recent: Last Vital Signs Temp 36.4 C 01/20/20 13:45 Pulse 65 01/20/20 13:45 Resp 14 01/20/20 13:45 BP 104/59 L 01/20/20 13:45 Pulse Ox 96 01/20/20 13:45 Weight - Most Recent: 81.647 kg I&O - Last 24 Hours: Intake & Output 01/19/20 01/20/20 01/20/20 22:59 06:59 14:59 Intake Total 530 1850 Output Total 300 675 Balance 230 1175 Lab Results Last 24 Hrs: Laboratory Results - last 24 hr 01/19/20 01/19/20 01/20/20 Range/Units 20:55 20:55 04:20 WBC 15.60 H (4.0-11.0) K/uL RBC 5.17 (4.50-5.90) M/uL Hgb 16.5 (13.0-17.0) g/dL Hct 48.3 (38.0-50.0) % MCV 93.4 (80.0-98.0) fL MCH 31.9 (27.0-32.0) pg MCHC 34.2 (31.0-37.0) g/dL RDW Std Deviation 44.6 (28.0-62.0) fl RDW Coeff of Vani 13 (11.0-15.0) % Plt Count 286 (150-400) K/uL MPV 11.20 (7.40-12.00) fL Neut % (Auto) 80.4 H (48.0-80.0) % Lymph % (Auto) 10.4 L (16.0-40.0) % [place] % (Auto) 8.5 (0.0-15.0) % Eos % (Auto) 0.6 (0.0-7.0) % Baso % (Auto) 0.1 (0.0-1.5) % Neut # (Auto) 12.5 H (1.4-5.7) K/uL Lymph # (Auto) 1.6 (0.6-2.4) K/uL [place] # (Auto) 1.3 H (0.0-0.8) K/uL Eos # (Auto) 0.1 (0.0-0.7) K/uL Baso # (Auto) 0.0 (0.0-0.1) K/uL Nucleated RBC % 0.0 /100WBC Nucleated RBCs # 0 K/uL Sodium 139 (136-148) mmol/L Potassium 4.6 (3.5-5.1) mmol/L Chloride 102 (98-107) mmol/L Carbon Dioxide 25.6 (21.0-32.0) mmol/L BUN 13 (7.0-18.0) mg/dL Creatinine 1.2 (0.8-1.3) mg/dL Est Cr Clr Drug Dosing 95.47 mL/min Estimated GFR (MDRD) > 60.0 ml/min Glucose 99 (74-106) mg/dL Calcium 9.4 (8.5-10.1) mg/dL Total Bilirubin 1.4 H (0.2-1.0) mg/dL AST 18 (15-37) IU/L ALT 31 (14-63) IU/L Alkaline Phosphatase 88 (46-116) U/L Total Protein 8.1 (6.4-8.2) g/dL Albumin 4.2 (3.4-5.0) g/dL Globulin 3.9 (2.6-4.0) g/dL Albumin/Globulin Ratio 1.1 (0.9-1.6) Lipase 84 (73-393) U/L Urine Color YELLOW Urine Appearance CLEAR Urine pH 5.5 (5.0-8.0) Ur Specific [place] 1.015 (1.001-1.035) Urine Protein NEGATIVE (NEGATIVE) mg/dL Urine Glucose (UA) NEGATIVE (NEGATIVE) mg/dL Urine Ketones NEGATIVE (NEGATIVE) mg/dL Urine Occult Blood NEGATIVE (NEGATIVE) Urine Nitrite NEGATIVE (NEGATIVE) Urine Bilirubin NEGATIVE (NEGATIVE) Urine Urobilinogen 0.2 (<2.0) EU/dL Ur Leukocyte Esterase NEGATIVE (NEGATIVE) Med Orders - Current: Current Medications Albuterol (Proventil Neb Soln) 2.5 mg NEB ONETIME PRN PRN Reason: Wheezing Atropine Sulfate (Atropine 0.1 Mg/Ml) 0.5 mg IVPUSH ASDIRECTED PRN PRN Reason: Hypo-perfusion Atropine Sulfate (Atropine 0.1 Mg/Ml) 1 mg IVPUSH ASDIRECTED PRN PRN Reason: Hypo-Perfusion Dextrose/Water (Dextrose 50% In Water) 50 ml IVPUSH ASDIRECTED PRN PRN Reason: Hypoglycemia Diphenhydramine HCl (Benadryl) 50 mg IVPUSH Q4H PRN PRN Reason: Itching Epinephrine HCl (Epinephrine 1:10,000) 1 mg IVPUSH ASDIRECTED PRN PRN Reason: ACLS Guidelines Fentanyl (Sublimaze) 50 mcg IVPUSH Q5M PRN PRN Reason: Pain Piperacillin Sod/Tazobactam (Sod 3.375 gm/ Sodium Chloride) 50 mls @ 100 mls/ hr IV Q6H [facility] Last Admin: 01/20/20 10:58 Dose: 100 mls/hr Morphine Sulfate (Morphine) 4 mg IVPUSH Q2H PRN PRN Reason: Pain (severe 7-10) Last Admin: 01/20/20 10:59 Dose: 4 mg Naloxone HCl (Narcan) 0.1 mg IVPUSH ASDIRECTED PRN PRN Reason: Respiratory Depression Ondansetron HCl (Zofran) 4 mg IVPUSH Q6H PRN PRN Reason: Nausea/Vomiting Oxycodone/Acetaminophen (Percocet 325-5 Mg) 2 tab PO Q4H PRN PRN Reason: Pain (moderate 4-6) Last Admin: 01/20/20 12:59 Dose: 2 tab Promethazine HCl (Phenergan) 25 mg IM Q6H PRN PRN Reason: Nausea Sodium Chloride (Saline Flush) 10 ml FLUSH ASDIRECTED PRN PRN Reason: Keep Vein Open Last Admin: 01/19/20 21:08 Dose: 10 ml Sodium Chloride (Saline Flush) 2.5 ml FLUSH ASDIRECTED PRN PRN Reason: Keep Vein Open Last Admin: 01/19/20 21:08 Dose: 2.5 ml Sodium Chloride (Saline Flush) 10 ml FLUSH ASDIRECTED PRN PRN Reason: Keep Vein Open Sodium Chloride (Saline Flush) 2.5 ml FLUSH ASDIRECTED PRN PRN Reason: Keep Vein Open Sodium Chloride (Normal Saline) 10 ml IV ASDIRECTED PRN PRN Reason: IV Use Discontinued Medications Bupivacaine HCl (Marcaine 0.5%) Confirm Administered Dose 30 ml .ROUTE .STK-MED ONE Stop: 01/20/20 07:33 Fentanyl (Sublimaze) Confirm Administered Dose 250 mcg .ROUTE .STK-MED ONE Stop: 01/20/20 07:18 Glycopyrrolate (Robinul) Confirm Administered Dose 0.4 mg .ROUTE .STK-MED ONE Stop: 01/20/20 07:24 Sodium Chloride (Normal Saline) 1,000 mls @ 999 mls/hr IV STAT ONE Stop: 01/19/20 21:41 Last Admin: 01/19/20 21:07 Dose: 999 mls/hr Piperacillin Sod/Tazobactam (Sod 4.5 gm/ Sodium Chloride) 100 mls @ 100 mls/hr IV ONETIME ONE Stop: 01/19/20 23:43 Last Admin: 01/19/20 23:09 Dose: Not Given Sodium Chloride (Normal Saline) 1,000 mls @ 1,000 mls/hr IV .Bolus ONE Stop: 01/19/20 23:43 Last Admin: 01/19/20 23:00 Dose: 1,000 mls/hr Piperacillin Sod/Tazobactam (Sod 3.375 gm/ Sodium Chloride) 50 mls @ 100 mls/ hr IV ONETIME ONE Stop: 01/19/20 23:19 Last Admin: 01/19/20 23:04 Dose: 100 mls/hr Lactated Ringer's (Ringers, Lactated) 1,000 mls @ 125 mls/hr IV ASDIRECTED [facility] Last Admin: 01/20/20 00:38 Dose: 125 mls/hr Iopamidol (Isovue-370 (76%)) 100 ml IVPUSH ONETIME STA Stop: 01/19/20 22:16 Last Admin: 01/19/20 22:19 Dose: 100 ml Lidocaine HCl (Xylocaine 2%) Confirm Administered Dose 100 mg .ROUTE .STK-MED ONE Stop: 01/20/20 07:16 Morphine Sulfate (Morphine) 8 mg IVPUSH ONETIME ONE Stop: 01/19/20 22:46 Last Admin: 01/19/20 23:02 Dose: 8 mg Ondansetron HCl (Zofran) Confirm Administered Dose 4 mg .ROUTE .STK-MED ONE Stop: 01/20/20 07:16 Propofol (Diprivan 20 Ml) Confirm Administered Dose 200 mg .ROUTE .STK-MED ONE Stop: 01/20/20 07:17 Rocuronium [place] (Zemuron) Confirm Administered Dose 100 mg .ROUTE .STK-MED ONE Stop: 01/20/20 07:16 - Exam Wound/Incisions: Healing Well, Dressing Dry and Intact General: Alert, Oriented, Cooperative HEENT: Pupils Equal, Pupils Reactive Lungs: Normal Respiratory Effort Cardiovascular: Regular Rate GI/Abdominal Exam: Soft, Non-Tender, No Distention, No Mass, Other (Dressings have scant bloody drainage ) Skin: Warm, Dry, Intact Sepsis Event Note - Evaluation Sepsis Screening Result: No Definite Risk - Focused Exam Vital Signs: Vital Signs Temp Pulse Resp BP Pulse Ox Pulse Ox 01/20/20 13:45 36.4 C 65 14 104/59 L 96 01/20/20 12:45 36.2 C 66 15 115/76 96 01/20/20 12:15 36.3 C 76 14 116/52 L 99 01/20/20 11:45 36.1 C 61 16 111/72 99 01/20/20 11:30 69 16 102/64 98 01/20/20 11:15 63 17 110/67 90 L 01/20/20 11:10 94 L 01/20/20 11:00 36.2 C 68 16 111/79 92 L 01/20/20 10:45 36.1 C 62 18 125/78 96 01/20/20 10:32 66 12 125/84 92 L 01/20/20 10:27 85 13 120/85 92 L 01/20/20 10:22 79 15 122/83 92 L 01/20/20 10:17 69 13 129/81 92 L 01/20/20 10:12 74 18 130/81 92 L 01/20/20 10:07 63 18 131/84 100 01/20/20 10:02 60 19 131/80 100 01/20/20 09:57 72 12 132/80 100 01/20/20 09:52 36.2 C 81 18 137/85 99 01/20/20 07:00 36.1 C 60 14 109/58 L 97 01/20/20 04:00 36.6 C 78 16 119/69 97 Date Exam was Performed: 01/20/20 Time Exam was Performed: 14:43 - Problem List & Annotations (1) Acute appendicitis SNOMED Code(s): 74677180 Code(s): K35.80 - UNSPECIFIED ACUTE APPENDICITIS Status: Acute Current Visit: Yes - Problem List Review Problem List Initiated/Reviewed/Updated: Yes - My Orders Last 24 Hours: Active Orders 24 hr Category Date Time Status Patient Status [ADT] Routine ADT 01/19/20 23:51 Active Blood Glucose Check, Bedside [RC] PRN Care 01/20/20 07:35 Active Bradycardia-Neuroaxis [employer] [RC] ROUTINE Care 01/20/20 07:35 Active Hypertension-Neuroaxis [place] [RC] ROUTINE Care 01/20/20 07:35 Active Hypotension-Neuroaxis [employer] [RC] ROUTINE Care 01/20/20 07:35 Active Intake and Output [RC] Q4HR Care 01/19/20 23:52 Active Notify Provider Vital Signs [RC] ASDIRECTED Care 01/20/20 07:35 Active Oxygen Therapy [RC] PRN Care 01/19/20 23:51 Active Oxygen Therapy [RC] PRN Care 01/20/20 07:35 Active RT Aerosol Therapy [RC] ASDIRECTED Care 01/20/20 07:35 Active RT Aerosol Therapy [RC] ASDIRECTED Care 01/20/20 07:35 Active RT Incentive Spirometry [RC] Q1HWA Care 01/19/20 23:51 Active Up ad [place]anie [RC] ASDIRECTED Care 01/19/20 23:51 Active Vital Signs [RC] Q4H Care 01/19/20 23:51 Active Vital Signs [RC] Q5M Care 01/20/20 07:35 Active Regular Diet [DIET] Diet 01/20/20 Lunch Active Acetaminophen/oxyCODONE [Percocet 325-5 MG] Med 01/19/20 23:51 Active 2 tab PO Q4H PRN Albuterol [Proventil Neb Soln] Med 01/20/20 07:35 Active 2.5 mg NEB ONETIME PRN Atropine [Atropine 0.1 MG/ML] Med 01/20/20 07:35 Active 0.5 mg IVPUSH ASDIRECTED PRN Atropine [Atropine 0.1 MG/ML] Med 01/20/20 07:35 Active 1 mg IVPUSH ASDIRECTED PRN Dextrose 50% in Water Med 01/20/20 07:35 Active 50 ml IVPUSH ASDIRECTED PRN EPINEPHrine [EPINEPHrine 1:10,000] Med 01/20/20 07:35 Active 1 mg IVPUSH ASDIRECTED PRN Morphine Med 01/19/20 23:51 Active 4 mg IVPUSH Q2H PRN Naloxone [Narcan] Med 01/20/20 07:35 Active 0.1 mg IVPUSH ASDIRECTED PRN Ondansetron [Zofran] Med 01/19/20 23:51 Active 4 mg IVPUSH Q6H PRN Piperacillin/Tazobactam [Piperacil-Tazobact] 3.375 gm Med 01/20/20 05:00 Active Sodium Chloride 0.9% [Normal Saline] 50 ml IV Q6H Promethazine [Phenergan] Med 01/19/20 23:51 Active 25 mg IM Q6H PRN Sodium Chloride 0.9% [Normal Saline] Med 01/19/20 23:51 Active 10 ml IV ASDIRECTED PRN Sodium Chloride 0.9% [Saline Flush] Med 01/19/20 20:34 Active 10 ml FLUSH ASDIRECTED PRN Sodium Chloride 0.9% [Saline Flush] Med 01/19/20 23:51 Active 10 ml FLUSH ASDIRECTED PRN Sodium Chloride 0.9% [Saline Flush] Med 01/19/20 20:34 Active 2.5 ml FLUSH ASDIRECTED PRN Sodium Chloride 0.9% [Saline Flush] Med 01/19/20 23:51 Active 2.5 ml FLUSH ASDIRECTED PRN diphenhydrAMINE [Benadryl] Med 01/19/20 23:51 Active 50 mg IVPUSH Q4H PRN fentaNYL [Sublimaze] Med 01/20/20 07:35 Active 50 mcg IVPUSH Q5M PRN Peripheral IV Insertion Adult [OM.PC] Urgent Oth 01/19/20 23:51 Ordered Saline Lock Insert [OM.PC] Stat Oth 01/19/20 20:34 Ordered Resuscitation Status Routine Resus Stat 01/19/20 23:51 Ordered Medication Orders Albuterol (Proventil Neb Soln) 2.5 mg NEB ONETIME PRN PRN Reason: Wheezing Atropine Sulfate (Atropine 0.1 Mg/Ml) 0.5 mg IVPUSH ASDIRECTED PRN PRN Reason: Hypo-perfusion Atropine Sulfate (Atropine 0.1 Mg/Ml) 1 mg IVPUSH ASDIRECTED PRN PRN Reason: Hypo-Perfusion Dextrose/Water (Dextrose 50% In Water) 50 ml IVPUSH ASDIRECTED PRN PRN Reason: Hypoglycemia Diphenhydramine HCl (Benadryl) 50 mg IVPUSH Q4H PRN PRN Reason: Itching Epinephrine HCl (Epinephrine 1:10,000) 1 mg IVPUSH ASDIRECTED PRN PRN Reason: ACLS Guidelines Fentanyl (Sublimaze) 50 mcg IVPUSH Q5M PRN PRN Reason: Pain Piperacillin Sod/Tazobactam (Sod 3.375 gm/ Sodium Chloride) 50 mls @ 100 mls/ hr IV Q6H CASE Last Admin: 01/20/20 10:58 Dose: 100 mls/hr Infusion: 01/20/20 04:47 Dose: 100 mls/hr Admin: 01/20/20 04:17 Dose: 100 mls/hr Morphine Sulfate (Morphine) 4 mg IVPUSH Q2H PRN PRN Reason: Pain (severe 7-10) Last Admin: 01/20/20 10:59 Dose: 4 mg Admin: 01/20/20 04:34 Dose: 4 mg Admin: 01/20/20 00:42 Dose: 4 mg Naloxone HCl (Narcan) 0.1 mg IVPUSH ASDIRECTED PRN PRN Reason: Respiratory Depression Ondansetron HCl (Zofran) 4 mg IVPUSH Q6H PRN PRN Reason: Nausea/Vomiting Oxycodone/Acetaminophen (Percocet 325-5 Mg) 2 tab PO Q4H PRN PRN Reason: Pain (moderate 4-6) Last Admin: 01/20/20 12:59 Dose: 2 tab Admin: 01/20/20 02:15 Dose: 2 tab Promethazine HCl (Phenergan) 25 mg IM Q6H PRN PRN Reason: Nausea Sodium Chloride (Saline Flush) 10 ml FLUSH ASDIRECTED PRN PRN Reason: Keep Vein Open Last Admin: 01/19/20 21:08 Dose: 10 ml Sodium Chloride (Saline Flush) 2.5 ml FLUSH ASDIRECTED PRN PRN Reason: Keep Vein Open Last Admin: 01/19/20 21:08 Dose: 2.5 ml Sodium Chloride (Saline Flush) 10 ml FLUSH ASDIRECTED PRN PRN Reason: Keep Vein Open Sodium Chloride (Saline Flush) 2.5 ml FLUSH ASDIRECTED PRN PRN Reason: Keep Vein Open Sodium Chloride (Normal Saline) 10 ml IV ASDIRECTED PRN PRN Reason: IV Use - Plan Plan (Free Text/Narrative):: Patient had a non-perforated appendicitis, however the appendix was perforated with manipulation of the appendix during the case. This was recognized and there was minimal contamination. The patient is doing well currently. Will keep zosyn IV for the next 24 hours. If stable will d/c home tomorrow.
[2020-01-20] MEDS: Ondansetron 4 MG/2 ML SDV IVPUSH PRN (21:48)
[2020-01-21] MEDS: Piperacillin/Tazobactam 3.375 GM in Sodium Chloride 0.9% 50 ML IV SCH ×2 (04:58→12:17)
[2020-01-21] MEDS: Acetaminophen/oxyCODONE 325-5 MG Tab PO PRN (05:06)
--- NOTE | 2020-01-21 08:02 | PCM.DCSUM1 ---
Discharge Summary - Hospital Course Free Text/Narrative:: Patient was a 29 year old male who presented with acute appendicitis.He had been having pain for 5 days and was tachycardic on arrival. He was admitted to the floor for resuscitation. After 8 hours his HR was normal. He was taken to the OR. His appendix was not ruptured, but ruptured with manipulation during the case. This was contained and the appendix was safely removed laparoscopically. He had a large amount of omental inflammation. The adhesions to the surrounding bowel were taken down. He tolerated the procedure well. He was monitored for the next 24 hours. 4 hours after eating dinner however he vomited. This was the only time. The next morning he felt mildly distended and had some abdominal pain. He was given pain medication and ambulated. He was advised to eat small amounts and drink plenty of fluid. He ate lunch with no difficulty and started passing gas. His pain was well controlled and his vitals were stable. He was discharged home. - Discharge Data Discharge Date: 01/21/20 Discharge Disposition: Home, Self-Care 01 Condition: Fair - Referral to Home Health Date of Face to Face Encounter: 01/21/20 Primary Care Physician: PCP None - Discharge Diagnosis/Problem(s) (1) Acute appendicitis SNOMED Code(s): 42201782 ICD Code: K35.80 - UNSPECIFIED ACUTE APPENDICITIS Status: Acute - Patient Summary/Data Operative Procedure(s) Performed: Laparoscopic appendectomy - Patient Instructions Diet: Regular Diet as Tolerated Activity: No Lifting Over 20 Pounds (for 4 weeks ), Rest and Relax Today Driving: Do Not Drive (for one week ) Showering/Bathing: No Showering (until tomorrow ), No Tub Bathing/Swimming (for 2 weeks ) Wound/Incision Care: Keep Operative Site/Wound Site Clean and Dry Notify Provider of: Fever, Increased Pain, Nausea and/or Vomiting - Discharge Plan *PRESCRIPTION DRUG MONITORING PROGRAM REVIEWED*: Yes *COPY OF PRESCRIPTION DRUG MONITORING REPORT IN PATIENT ASUNCION: Yes Home Medications: Home Meds . [No Known Home Meds] 01/19/20 [History] Patient Handouts: Acetaminophen; Hydrocodone tablets or capsules, Laparoscopic Appendectomy, Adult, Care After, [id number] Referrals: Beti Reed MD [Physician] - 01/28/20 8:30 am (Arrive 15 minutes early with a photo ID and insurance card) - Discharge Summary/Plan Comment DC Time >30 min.: No - General Info Functional Status: Reports: Pain Controlled, Tolerating Diet, Ambulating, Urinating - Review of Systems General: Reports: No Symptoms Pulmonary: Reports: No Symptoms Cardiovascular: Reports: No Symptoms Gastrointestinal: Reports: No Symptoms, Flatus Genitourinary: Reports: No Symptoms - Patient Data Vitals - Most Recent: Last Vital Signs Temp 37.0 C 01/21/20 04:57 Pulse 82 01/21/20 04:57 Resp 18 01/21/20 04:57 BP 118/73 01/21/20 04:57 Pulse Ox 94 L 01/21/20 04:57 Weight - Most Recent: 81.647 kg I&O - Last 24 hours: Intake & Output 01/20/20 01/21/20 01/21/20 22:59 06:59 14:59 Intake Total 670 550 Balance 670 550 Med Orders - Current: Current Medications Diphenhydramine HCl (Benadryl) 50 mg IVPUSH Q4H PRN PRN Reason: Itching Piperacillin Sod/Tazobactam (Sod 3.375 gm/ Sodium Chloride) 50 mls @ 100 mls/ hr IV Q6H CASE Last Admin: 01/21/20 04:58 Dose: 100 mls/hr Morphine Sulfate (Morphine) 4 mg IVPUSH Q2H PRN PRN Reason: Pain (severe 7-10) Last Admin: 01/20/20 21:48 Dose: 4 mg Ondansetron HCl (Zofran) 4 mg IVPUSH Q6H PRN PRN Reason: Nausea/Vomiting Last Admin: 01/20/20 21:48 Dose: 4 mg Oxycodone/Acetaminophen (Percocet 325-5 Mg) 2 tab PO Q4H PRN PRN Reason: Pain (moderate 4-6) Last Admin: 01/21/20 05:06 Dose: 2 tab Promethazine HCl (Phenergan) 25 mg IM Q6H PRN PRN Reason: Nausea Sodium Chloride (Saline Flush) 10 ml FLUSH ASDIRECTED PRN PRN Reason: Keep Vein Open Sodium Chloride (Saline Flush) 2.5 ml FLUSH ASDIRECTED PRN PRN Reason: Keep Vein Open Sodium Chloride (Normal Saline) 10 ml IV ASDIRECTED PRN PRN Reason: IV Use Discontinued Medications Albuterol (Proventil Neb Soln) 2.5 mg NEB ONETIME PRN PRN Reason: Wheezing Atropine Sulfate (Atropine 0.1 Mg/Ml) 0.5 mg IVPUSH ASDIRECTED PRN PRN Reason: Hypo-perfusion Atropine Sulfate (Atropine 0.1 Mg/Ml) 1 mg IVPUSH ASDIRECTED PRN PRN Reason: Hypo-Perfusion Bupivacaine HCl (Marcaine 0.5%) Confirm Administered Dose 30 ml .ROUTE .STK-MED ONE Stop: 01/20/20 07:33 Dextrose/Water (Dextrose 50% In Water) 50 ml IVPUSH ASDIRECTED PRN PRN Reason: Hypoglycemia Epinephrine HCl (Epinephrine 1:10,000) 1 mg IVPUSH ASDIRECTED PRN PRN Reason: ACLS Guidelines Fentanyl (Sublimaze) Confirm Administered Dose 250 mcg .ROUTE .STK-MED ONE Stop: 01/20/20 07:18 Fentanyl (Sublimaze) 50 mcg IVPUSH Q5M PRN PRN Reason: Pain Glycopyrrolate (Robinul) Confirm Administered Dose 0.4 mg .ROUTE .STK-MED ONE Stop: 01/20/20 07:24 Sodium Chloride (Normal Saline) 1,000 mls @ 999 mls/hr IV STAT ONE Stop: 01/19/20 21:41 Last Admin: 01/19/20 21:07 Dose: 999 mls/hr Piperacillin Sod/Tazobactam (Sod 4.5 gm/ Sodium Chloride) 100 mls @ 100 mls/hr IV ONETIME ONE Stop: 01/19/20 23:43 Last Admin: 01/19/20 23:09 Dose: Not Given Sodium Chloride (Normal Saline) 1,000 mls @ 1,000 mls/hr IV .Bolus ONE Stop: 01/19/20 23:43 Last Admin: 01/19/20 23:00 Dose: 1,000 mls/hr Piperacillin Sod/Tazobactam (Sod 3.375 gm/ Sodium Chloride) 50 mls @ 100 mls/ hr IV ONETIME ONE Stop: 01/19/20 23:19 Last Admin: 01/19/20 23:04 Dose: 100 mls/hr Lactated Ringer's (Ringers, Lactated) 1,000 mls @ 125 mls/hr IV ASDIRECTED CASE Last Admin: 01/20/20 00:38 Dose: 125 mls/hr Iopamidol (Isovue-370 (76%)) 100 ml IVPUSH ONETIME STA Stop: 01/19/20 22:16 Last Admin: 01/19/20 22:19 Dose: 100 ml Lidocaine HCl (Xylocaine 2%) Confirm Administered Dose 100 mg .ROUTE .STK-MED ONE Stop: 01/20/20 07:16 Morphine Sulfate (Morphine) 8 mg IVPUSH ONETIME ONE Stop: 01/19/20 22:46 Last Admin: 01/19/20 23:02 Dose: 8 mg Naloxone HCl (Narcan) 0.1 mg IVPUSH ASDIRECTED PRN PRN Reason: Respiratory Depression Ondansetron HCl (Zofran) Confirm Administered Dose 4 mg .ROUTE .STK-MED ONE Stop: 01/20/20 07:16 Propofol (Diprivan 20 Ml) Confirm Administered Dose 200 mg .ROUTE .STK-MED ONE Stop: 01/20/20 07:17 Rocuronium [place] (Zemuron) Confirm Administered Dose 100 mg .ROUTE .STK-MED ONE Stop: 01/20/20 07:16 Sodium Chloride (Saline Flush) 10 ml FLUSH ASDIRECTED PRN PRN Reason: Keep Vein Open Last Admin: 01/19/20 21:08 Dose: 10 ml Sodium Chloride (Saline Flush) 2.5 ml FLUSH ASDIRECTED PRN PRN Reason: Keep Vein Open Last Admin: 01/19/20 21:08 Dose: 2.5 ml - Exam General: Reports: Alert, Oriented HEENT: Reports: Pupils Equal, Pupils Reactive Lungs: Reports: Clear to Auscultation, Normal Respiratory Effort Cardiovascular: Reports: Regular Rate, Regular Rhythm GI/Abdominal Exam: Soft, No Mass, Distended (mild distension throughout ), Tender (mild tenderness along lower midline ) Back Exam: Reports: Normal Inspection, Full Range of Motion Extremities: Normal Inspection, Normal Range of Motion Skin: Reports: Warm, Dry, Intact Wound/Incisions: Reports: Healing Well, Dressing Dry and Intact
[2020-01-21] MEDS: Ondansetron 4 MG/2 ML SDV IVPUSH PRN (08:46)
[2020-01-21] MEDS ORDERED: Docusate Sodium 100 MG Cap PO SCH (10:00)
--- NOTE | 2020-01-21 15:20 | OR ---
SURGEON: BETI CLEMENTS MD DATE OF PROCEDURE: 01/20/2020 PREOPERATIVE DIAGNOSIS: Acute appendicitis. POSTOPERATIVE DIAGNOSIS: Acute appendicitis. PROCEDURE PERFORMED: Laparoscopic appendectomy. PRIMARY SURGEON: Beti Clements MD MEDICAL OFFICE ASSISTANT INSTRUCTOR: Diet Therapist: Dr. Jerel Watson, vice president of customer service. ANESTHESIA: General endotracheal anesthesia. FLUIDS: 800 mL of crystalloid. ESTIMATED BLOOD LOSS: 10 mL. URINE OUTPUT: 225 mL. FINDINGS: Grossly inflamed and enlarged appendix encased in omentum. A tip of the appendix perforated with manipulation. COMPLICATIONS: None. INDICATIONS: The patient is a 29-year-old male who presented to the emergency room with acute appendicitis as well as tachycardia. He was admitted for resuscitation and his tachycardia improved with this. The patient and I discussed the need for an appendectomy. I will attempt it laparoscopically and convert to open should I be unable to perform it safely. I explained the procedure; expected perioperative course; and risks including bleeding, infection, or damage to surrounding structures. The patient verbalized understanding and wishes to proceed. PROCEDURE IN DETAIL: The patient was brought into the OR and placed on the OR table in the supine position. A time-out was completed verifying the patient's name, age, date of , allergies, and procedure to be performed. General endotracheal anesthesia was induced. The left arm was tucked to the patient's side and a Rizvi catheter placed. The abdomen was prepped and draped in the usual standard fashion. I anesthetized an area 2 fingerbreadths below the left subcostal margin in the midclavicular line with 0.5% Marcaine plain. A 1 cm incision was made using an 11 blade. I entered into the abdomen through this incision using a 5 mm optical trocar and a 5 mm 0-degree scope. All layers of the abdominal wall were visualized upon entry. Upon entry, I then insufflated the abdomen. A 5 mm 30-degree scope was then inserted and I inspected the area underneath my initial trocar placement. No damage to surrounding structures was noted. A 5 mm trocar was placed just left and lateral to the umbilicus and a 12 mm trocar was placed in the left lower quadrant. Both of these were placed under direct visualization. The patient was placed into Trendelenburg position and airplaned slightly to the left. The patient was noted to have an area in the right lower quadrant with thickened and inflamed omentum. I identified the cecum and followed the tenia down to the base of the appendix. I could clearly see the base of the appendix. The body of the appendix appeared to be encased in a thickened rind of inflamed omentum. Using gentle blunt dissection, I was able to clear away the omentum and its attachments to the appendix. The appendix was grossly inflamed and enlarged. There was no evidence of gross perforation. There was no evidence of any purulence in the right lower quadrant where the appendix was at. The appendiceal mesentery was extremely thickened and inflamed. This obscured the tip of the appendix. I grabbed the end of the appendiceal mesentery and using a Harmonic scalpel device, I made a cut through where I felt the junction of the tip of the appendix and the mesentery was. I unfortunately got into the appendix. A small amount of purulence was noted. This was suctioned out. I then made my next incision down lower onto the appendiceal mesentery. I then was in a better tissue plane to begin my dissection. I carried my dissection along the appendiceal mesentery from distal to proximal. Great care was taken the closer I got to the cecum to ensure that I was not damaging any surrounding structures. The appendiceal mesentery was thick and great care was also taken to ensure good hemostasis. Once the appendiceal mesentery was completely freed away from the base of the appendix and I could see it clearly, an endoscopic stapling device was brought into the field. The base of the appendix itself was not involved in the inflammatory process. I stapled and transected across this using a 45 mm blue load of wilbert. The appendix was then placed in an Endo Catch bag and removed through the 12 mm port site. The port was replaced, and I inspected my operative field. The omentum where the appendix had been encased in was attached to the surrounding small bowel and cecum. I gently brushed away as much of these attachments as I safely could. A small amount of irrigation was used around the right lower quadrant and suctioned out. I then removed my 12 mm port site and closed the fascia at this site using an interrupted 0 Vicryl suture using a Joby-Nikkie device. The 5 mm trocars were removed and the abdomen allowed to desufflate. The subcutaneous fat at the 12 mm trocar site was closed with layers of interrupted 3-0 Vicryl sutures. The skin was closed with a running 4- 0 Monocryl stitch. The 5 mm trocar sites were closed with interrupted 4-0 Monocryl sutures. Steri-Strips and sterile dressings were applied. The patient tolerated the procedure well and was transferred to the PACU in stable condition. All counts were complete and correct at the end of the case. MIHIR PEREA /[id number]
== END 2020-01-21 16:49 | disposition home or self-care (01) ==
LOC: MW.ED 20:20 → MW.MS 23:28
PROVIDERS: ADMIT Surgery; ATTEND Surgery
DX: K35.33 Acute appendicitis with perforation, localized peritonitis, and gangrene, with abscess (principal); F17.210 Nicotine dependence, cigarettes, uncomplicated
CPT/HCPCS: 44970; 74177; 80053; 81003; 83690; 85025; 88304; A9270; J2001; J2270; J2405; J2543; J2704; J3010; J3490; J7030; J7050; J7120; Q9967; 00840; 96361; 96365; 96375; 99283; 99285-25

== ENCOUNTER 2020-03-02 19:46 | Emergency (ER) | payer BC ==
[2020-03-02] MEDS ORDERED: Sodium Chloride 0.9% 1,000 ML IV ONE (20:25)
[2020-03-02] MEDS ORDERED: Pantoprazole 40 MG in Sodium Chloride 0.9% 10 ML IV ONE (20:25)
[2020-03-02] MEDS ORDERED: Ondansetron 4 MG/2 ML SDV IVPUSH ONE (20:25)
--- NOTE | 2020-03-02 20:40 | EDM.PDOC ---
ED HPI GENERAL MEDICAL PROBLEM - General Chief Complaint: Gastrointestinal Problem Stated Complaint: COUGHING UP BLOOD Time Seen by Provider: 03/02/20 20:11 Source of Information: Reports: Patient History Limitations: Reports: No Limitations - History of Present Illness INITIAL COMMENTS - FREE TEXT/NARRATIVE: Presents reporting vomiting blood x2 today. Has a history of gastric ulcers starting approximately 2 years ago. At that time he was worked up by gastroenterology with upper and lower endoscopy. He was treated with what sounds like a short course of a PPI but failed to follow-up appointments. He had a laparoscopic appendectomy 1 month ago which he has recovered from without sequelae. He had a brown formed stool earlier today without blood mucus or black tarry stool. Denies fever, chills, dysuria, diarrhea or nausea. He states his ulcers are aggravated by certain foods. Tonight, he states that he vomited up blood and then proceeded to drink 4 beers and then puked up blood again. Otherwise, he states he has not drank alcohol in 6 months and never drank excessively prior to that. He always feels bloated. - Related Data Allergies Allergy/AdvReac Type Severity Reaction Status Date / Time No Known Allergies Allergy Verified 03/02/20 19:58 Home Meds: Home Meds Pantoprazole Sodium [Protonix] 1 tab PO DAILY #14 tablet. 03/02/20 [Rx] Past Medical History HEENT History: Reports: Other (See Below) Other HEENT History: wears glasses Cardiovascular History: Reports: None Respiratory History: Reports: None, Other (See Below) Gastrointestinal History: Reports: None Genitourinary History: Reports: None Musculoskeletal History: Reports: Fracture Neurological History: Reports: None Psychiatric History: Reports: None Endocrine/Metabolic History: Reports: None Insulin Pump Model and Strategic Account Director: None Hematologic History: Reports: None Immunologic History: Reports: None Oncologic (Cancer) History: Reports: None Dermatologic History: Reports: None - Infectious Disease History Infectious Disease History: Reports: Chicken Pox - Past Surgical History Head Surgeries/Procedures: Reports: None HEENT Surgical History: Reports: None Cardiovascular Surgical History: Reports: None Respiratory Surgical History: Reports: None GI Surgical History: Reports: Colonoscopy Male Surgical History: Reports: None Neurological Surgical History: Reports: None Musculoskeletal Surgical History: Reports: ORIF Other Musculoskeletal Surgeries/Procedures:: ORIF rt femur fx, hardware removal rt femur. right hand surgery Oncologic Surgical History: Reports: None Social & Family History - Family History Family Medical History: Noncontributory - Tobacco Use Smoking Status *Q: Never Smoker - Caffeine Use Caffeine Use: Reports: None - Recreational Drug Use Recreational Drug Use: No ED ROS GENERAL - Review of Systems Review Of Systems: Comprehensive ROS is negative, except as noted in HPI. ED EXAM, GI/ABD - Physical Exam Exam: See Below Exam Limited By: No Limitations General Appearance: Alert, No Apparent Distress Ears: Normal External Exam Nose: Normal Inspection Throat/Mouth: Normal Inspection, Normal Lips Head: Atraumatic, Normocephalic Neck: Normal Inspection Respiratory/Chest: No Respiratory Distress, Lungs Clear, Normal Breath Sounds Cardiovascular: Normal Peripheral Pulses, Regular Rate, Rhythm, No Murmur GI/Abdominal Exam: Soft, No Distention, Other (Gastric tenderness) Back Exam: Normal Inspection Extremities: Normal Inspection Neurological: Alert, Oriented Psychiatric: Normal Affect, Normal Mood Skin Exam: Warm, Dry, Intact, Normal Color, No Rash Lymphatic: No Adenopathy Course - Vital Signs Last Recorded V/S: Last Vital Signs Temp 36.2 C 03/02/20 19:53 Pulse 84 03/02/20 21:00 Resp 17 03/02/20 21:00 BP 125/74 03/02/20 21:00 Pulse Ox 97 03/02/20 21:00 - Orders/Labs/Meds Labs: Laboratory Tests 03/02/20 03/02/20 Range/Units 20:36 20:36 WBC 8.25 (4.0-11.0) K/uL RBC 5.45 (4.50-5.90) M/uL Hgb 17.1 H (13.0-17.0) g/dL Hct 49.9 (38.0-50.0) % MCV 91.6 (80.0-98.0) fL MCH 31.4 (27.0-32.0) pg MCHC 34.3 (31.0-37.0) g/dL RDW Std Deviation 44.9 (28.0-62.0) fl RDW Coeff of Vani 14 (11.0-15.0) % Plt Count 243 (150-400) K/uL MPV 11.00 (7.40-12.00) fL Neut % (Auto) 67.4 (48.0-80.0) % Lymph % (Auto) 22.9 (16.0-40.0) % [place] % (Auto) 9.0 (0.0-15.0) % Eos % (Auto) 0.6 (0.0-7.0) % Baso % (Auto) 0.1 (0.0-1.5) % Neut # (Auto) 5.6 (1.4-5.7) K/uL Lymph # (Auto) 1.9 (0.6-2.4) K/uL [place] # (Auto) 0.7 (0.0-0.8) K/uL Eos # (Auto) 0.1 (0.0-0.7) K/uL Baso # (Auto) 0.0 (0.0-0.1) K/uL Nucleated RBC % 0.0 /100WBC Nucleated RBCs # 0 K/uL Sodium 140 (136-148) mmol/L Potassium 3.8 (3.5-5.1) mmol/L Chloride 103 (98-107) mmol/L Carbon Dioxide 24.3 (21.0-32.0) mmol/L BUN 13 (7.0-18.0) mg/dL Creatinine 1.1 (0.8-1.3) mg/dL Est Cr Clr Drug Dosing 107.44 mL/min Estimated GFR (MDRD) > 60.0 ml/min Glucose 87 (74-106) mg/dL Calcium 8.4 L (8.5-10.1) mg/dL Total Bilirubin 0.6 (0.2-1.0) mg/dL AST 33 (15-37) IU/L ALT 61 (14-63) IU/L Alkaline Phosphatase 90 (46-116) U/L Total Protein 8.0 (6.4-8.2) g/dL Albumin 4.5 (3.4-5.0) g/dL Globulin 3.5 (2.6-4.0) g/dL Albumin/Globulin Ratio 1.3 (0.9-1.6) Amylase 105 (25-115) U/L Lipase 126 (73-393) U/L Meds: Medications Discontinued Medications Generic Name Dose Route Start Last Admin Trade Name Freq PRN Reason Stop Dose Admin Pantoprazole Sodium 40 mg/ 10 mls @ 300 mls/hr 05/12/20 20:25 03/02/20 20:44 Sodium Chloride IV 03/02/20 20:26 300 mls/hr NOW ONE Administration Sodium Chloride 1,000 mls @ 999 mls/hr 03/02/20 20:25 03/02/20 20:42 Normal Saline IV 03/02/20 21:25 999 mls/hr STAT ONE Administration Ondansetron HCl 4 mg 03/02/20 20:25 03/02/20 20:43 Zofran IVPUSH 03/02/20 20:26 4 mg ONETIME ONE Administration Departure - Departure Time of Disposition: 21:40 Disposition: Home, Self-Care 01 Condition: Good Clinical Impression: Upper GI bleed - Discharge Information Prescriptions: Pantoprazole Sodium [Protonix] 1 tab PO DAILY #14 tablet. Referrals: PCP,None [Primary Care Provider] - [facility] [Outside] [facility] [Outside] Forms: ED Department Discharge Additional Instructions: 1. Take your PPI medication daily 30 min before breakfast with water. 2. You MUST follow up in primary care for ongoing management of your symptoms and possible ulcer. 3. Return promptly for excessive bloody vomiting, lightheadedness, abdominal pain. Sepsis Event Note - Evaluation Sepsis Screening Result: No Definite Risk - Focused Exam Vital Signs: Vital Signs Temp Pulse Resp BP Pulse Ox 03/02/20 21:00 84 17 125/74 97 03/02/20 20:30 86 17 127/78 96 03/02/20 19:53 36.2 C 98 18 129/78 98 Date Exam was Performed: 03/02/20 Time Exam was Performed: 21:40
[2020-03-02 21:05] LABS: BLOOD UREA NITROGEN,BUN 13 mg/dL (7.0-18.0); CARBON DIOXIDE,CO2 24.3 mmol/L (21.0-32.0); CHLORIDE,CL 103 mmol/L (98-107); GLUCOSE RANDOM 87 mg/dL (74-106); LIPASE 126 U/L (73-393); POTASSIUM,K 3.8 mmol/L (3.5-5.1); SODIUM,NA 140 mmol/L (136-148)
== END 2020-03-02 21:52 | disposition home or self-care (01) ==
LOC: MW.ED 19:46
DX: K92.2 Gastrointestinal hemorrhage, unspecified (principal); Z79.899 Other long term (current) drug therapy
CPT/HCPCS: 36415; 80053; 82150; 83690; 85025; 96361; 96374; 96375; 99284; C9113; J2405; J7030; J7050; 99283